=== PATIENT | female | born 1990 | race Hispanic/Latino ===

== ENCOUNTER 2016-06-21 11:39 | Inpatient (IN) | payer OTHER ==
[2016-06-21] VITALS (37 sets, daily range): BP systolic 111–180; BP diastolic 55–112
[~2016-06-21] VITALS: Ht 160 cm; Wt 99.0 kg
[~2016-06-21 11:39] MED LIST: B12; IBUPROFEN800 MG; NOHOMEMEDS; NUVARING VAGIN1 EACH PO; PAROXETINE HCL20 MG PO; PRENATAL TABLE1 EAC3 PO; PROCTOFOAM-HC10 GM; TOPIRAMATE50 MG PO; VITAMIN D-32000 UNI2 PO; ZOFRAN4 MG PO
[2016-06-21] MEDS ORDERED: AMBIEN5 MG PO (12:11)
[2016-06-21 13:47] LABS: EOSINOPHIL (%) 0.8 % (0-5); EOSINOPHIL COUNT 0.1 K/uL (0-0.3); IMMATURE GRANULOCYTE (%) 0.5 % (0.0-0.7); IMMATURE GRANULOCYTE COUNT 0.1 K/uL; LYMPHOCYTE COUNT 2.4 K/uL (1.0-2.8); MONOCYTE (%) 8.4 % (3-12); MONOCYTE COUNT 1.1 K/uL (0-0.8); NEUTROPHIL (%) 71.9 % (45-76); NEUTROPHIL COUNT 9.5 K/uL (1.8-6.4)
[2016-06-21 14:04] LABS: HEMATOCRIT 36.6 % (36.0-46.0); MCH 26.7 PG (29.0-34.0); MCHC 33.1 G/DL (30.0-36.0); MCV 80.6 FL (83-99); RBC DIS.WIDTH-SD 40.9 % (39-53); RED BLOOD COUNT 4.54 M/uL (3.80-5.20); WHITE BLOOD COUNT 13.2 K/uL (4.1-10.2)
[2016-06-21 14:59] LABS: PLAT.SUFFICIENCY DECREASED; USER ID SS
[2016-06-21 15:00] LABS: PLATELET COUNT 140 K/uL (156-360)
[2016-06-21] MEDS ORDERED: MOTRIN800 MG PO (22:20)
[2016-06-22 00:20] VITALS: BP 145/73
[2016-06-22 01:25] VITALS: BP 136/95
[2016-06-22 02:50] VITALS: BP 138/70
[2016-06-22 08:12] VITALS: BP 112/65
[2016-06-22 09:12] LABS: PLAT.SUFFICIENCY ADEQUATE; PLATELET COUNT UNABLE TO REPORT K/uL (156-360)
[2016-06-22 09:15] LABS: EOSINOPHIL (%) 0.3 % (0-5); EOSINOPHIL COUNT 0.1 K/uL (0-0.3); IMMATURE GRANULOCYTE (%) 0.3 % (0.0-0.7); IMMATURE GRANULOCYTE COUNT 0.1 K/uL; LYMPHOCYTE COUNT 2.1 K/uL (1.0-2.8); MONOCYTE (%) 8.3 % (3-12); MONOCYTE COUNT 1.6 K/uL (0-0.8); NEUTROPHIL (%) 79.7 % (45-76); NEUTROPHIL COUNT 15.1 K/uL (1.8-6.4)
[2016-06-22 09:21] LABS: HEMATOCRIT 32.4 % (36.0-46.0); MCH 25.7 PG (29.0-34.0); MCHC 32.1 G/DL (30.0-36.0); MCV 80.1 FL (83-99); RBC DIS.WIDTH-SD 39.8 % (39-53); RED BLOOD COUNT 4.05 M/uL (3.80-5.20)
[2016-06-22 15:41] VITALS: BP 131/71
[2016-06-22 23:27] VITALS: BP 134/74
[2016-06-23 07:39] VITALS: BP 133/66
[2016-06-23 15:20] VITALS: BP 131/58
== END 2016-06-23 16:25 | disposition home or self-care (01) | DRG 775 ==
LOC: LDRP-OP 11:39 → 2WEST 11:40 → LDRP-OP 06-22 10:37 → 2WEST 06-23 16:25 → LDRP-OP 07-23 12:08
PROVIDERS: Midwife; Obstetrics & Gynecology
DX: O99.344 Other mental disorders complicating childbirth (principal); E66.9 Obesity, unspecified; F41.9 Anxiety disorder, unspecified; O99.214 Obesity complicating childbirth; O70.0 First degree perineal laceration during delivery; O76 Abnormality in fetal heart rate and rhythm complicating labor and delivery; O77.0 Labor and delivery complicated by meconium in amniotic fluid; Z3A.39 39 weeks gestation of pregnancy; Z37.0 Single live birth
CPT/HCPCS: 85025; C1755; J0595; J1200; J2300; J3010; J7120

== ENCOUNTER 2016-12-31 20:26 | Emergency (ER) | payer OTHER ==
[~2016-12-31] VITALS: Ht 160 cm; Wt 92.7 kg
[~2016-12-31 20:26] MED LIST changes: +AMBIEN5 MG PO; +MOTRIN800 MG PO
[2016-12-31 21:13] LABS: ADD MIUA? YES; BILIRUBIN LARGE; BLOOD TRACE; COLOR ORANGE ((YELLOW)); GLUCOSE (STRIP) NEGATIVE; KETONES NEGATIVE; LEUKOCYTES SMALL; SPECIFIC GRAVITY 1.016 (1.000-1.030)
[2016-12-31 21:27] LABS: BACTERIA 1+ /HPF; EPITHELIAL CELLS 1+ /HPF; MUCUS RARE /LPF; RED BLOOD CELLS 0-5 /HPF (0-5); UCUL ADDED? YES
[2016-12-31 21:28] LABS: ICTOTEST POSITIVE
[2016-12-31 22:27] LABS: EOSINOPHIL (%) 0.6 % (0-5); EOSINOPHIL COUNT 0.1 K/uL (0-0.3); HEMATOCRIT 36.3 % (36.0-46.0); IMMATURE GRANULOCYTE (%) 0.3 % (0.0-0.7); INSTRUMENT ABS NEUTROPHIL CT 6.6 K/uL; LYMPHOCYTE COUNT 1.3 K/uL (1.0-2.8); MCHC 30.3 G/DL (30.0-36.0); MCV 75.9 FL (83-99); MEAN PLAT.VOLUME 11.9 uM^3 (9.5-12.4); MONOCYTE (%) 9.7 % (3-12); MONOCYTE COUNT 0.9 K/uL (0-0.8); NEUTROPHIL (%) 75.1 % (45-76); NEUTROPHIL COUNT 6.6 K/uL (1.8-6.4); PLATELET COUNT 195 K/uL (156-360); RBC DIS.WIDTH-CV 15.1 % (11.8-14.6); RBC DIS.WIDTH-SD 41.6 % (39-53); RED BLOOD COUNT 4.78 M/uL (3.80-5.20); WHITE BLOOD COUNT 8.8 K/uL (4.1-10.2)
[2016-12-31 22:43] LABS: CHLORIDE 106 mEq/L (99-109); POTASSIUM 3.8 mEq/L (3.7-5.4); SODIUM 137 mEq/L (136-147)
[2016-12-31 22:46] LABS: GLUCOSE 95 mg/dL (70-99)
[2016-12-31 22:47] LABS: ANION GAP 10 MEQ/L (2-14)
[2016-12-31 22:48] LABS: TOTAL BILIRUBIN 0.3 mg/dL (0.0-1.0)
[2016-12-31 22:49] LABS: ALKALINE PHOSPHATASE 83 IU/L (3-129); GFR ESTIMATE (CALCULATED) > 59 mL/min/
[2016-12-31 22:50] LABS: UREA NITROGEN (BUN) 10 mg/dL (9-23)
[2016-12-31 22:58] LABS: QUANTITATIVE HCG < 4.0 MIU/ML
[2016-12-31] MEDS ORDERED: KEFLEX500 MG PO (23:41)
[2016-12-31] MEDS ORDERED: NAPROSYN500 MG PO (23:42)
[2016-12-31] MEDS ORDERED: ZOFRAN ODT4 MG PO (23:42)
[2016-12-31 23:59] VITALS: BP 115/64
== END 2017-01-01 | disposition home or self-care (01) ==
LOC: EME 20:26
PROVIDERS: Emergency Medicine
DX: N12 Tubulo-interstitial nephritis, not specified as acute or chronic (principal); F17.200 Nicotine dependence, unspecified, uncomplicated; Z87.442 Personal history of urinary calculi
CPT/HCPCS: 74176; 80053; 81003; 83605; 84702; 85025; 87040; 87086; 99281; 99285; J0696; J1885; J2405; J7030; J7050

== ENCOUNTER 2017-01-03 22:15 | Emergency (ER) | payer OTHER ==
[~2017-01-03] VITALS: Ht 160 cm; Wt 94.5 kg
[~2017-01-03 22:15] MED LIST changes: +KEFLEX500 MG PO; +NAPROSYN500 MG PO; +ZOFRAN ODT4 MG PO
[2017-01-03 22:59] LABS: HEMATOCRIT 31.9 % (36.0-46.0); MCH 22.9 PG (29.0-34.0); MCHC 30.4 G/DL (30.0-36.0); MCV 75.2 FL (83-99); PLATELET COUNT 188 K/uL (156-360); RBC DIS.WIDTH-CV 15.1 % (11.8-14.6); RBC DIS.WIDTH-SD 41.6 % (39-53); RED BLOOD COUNT 4.24 M/uL (3.80-5.20); WHITE BLOOD COUNT 7.4 K/uL (4.1-10.2)
[2017-01-03 23:19] LABS: CHLORIDE 105 mEq/L (99-109); POTASSIUM 4.1 mEq/L (3.7-5.4); SODIUM 135 mEq/L (136-147)
[2017-01-03 23:21] LABS: GLUCOSE 99 mg/dL (70-99)
[2017-01-03 23:23] LABS: ANION GAP 8 MEQ/L (2-14)
[2017-01-03 23:25] LABS: ALKALINE PHOSPHATASE 77 IU/L (3-129); GFR ESTIMATE (CALCULATED) > 59 mL/min/
[2017-01-03 23:26] LABS: UREA NITROGEN (BUN) 7 mg/dL (9-23)
[2017-01-03 23:28] LABS: QUANTITATIVE HCG < 4.0 MIU/ML
[2017-01-03 23:36] LABS: TOTAL BILIRUBIN 0.2 mg/dL (0.0-1.0)
[2017-01-04 00:35] LABS: ADD MIUA? YES; COLOR ORANGE ((YELLOW)); SPECIFIC GRAVITY 1.021 (1.000-1.030)
[2017-01-04 01:04] LABS: BACTERIA NONE SEEN /HPF; CASTS NONE SEEN /LPF; CRYSTALS NONE SEEN; EPITHELIAL CELLS RARE /HPF; MUCUS NONE SEEN /LPF; RED BLOOD CELLS 0-5 /HPF (0-5); UCUL ADDED? YES
[2017-01-04] MEDS ORDERED: NORCO 5/3251 TABLET PO (01:20)
[2017-01-04] MEDS ORDERED: CIPRO500 MG PO (01:20)
[2017-01-04 01:47] LABS: INFLUENZA A VIRAL ANTIGEN NEGATIVE; INFLUENZA B VIRAL ANTIGEN NEGATIVE
[2017-01-04] MEDS ORDERED: ZOFRAN4 MG PO (02:33)
[2017-01-04 03:02] VITALS: BP 129/74
== END 2017-01-04 03:03 | disposition home or self-care (01) ==
LOC: EME 22:15
PROVIDERS: Emergency Medicine
DX: N30.90 Cystitis, unspecified without hematuria (principal); M79.1 Myalgia; D64.9 Anemia, unspecified; F17.200 Nicotine dependence, unspecified, uncomplicated
CPT/HCPCS: 76770; 80053; 81003; 84702; 85027; 87086; 87502; 99281; 99285; J0744; J1885; J2270; J2405; J7030

== ENCOUNTER 2017-11-12 18:53 | Emergency (ER) | payer OTHER ==
[~2017-11-12] VITALS: Ht 160 cm; Wt 85.0 kg
[~2017-11-12 18:53] MED LIST changes: +CIPRO500 MG PO; +NORCO 5/3251 TABLET PO
[2017-11-12 21:03] VITALS: BP 143/84
== END 2017-11-12 21:05 | disposition home or self-care (01) ==
LOC: EME 18:53
DX: F41.9 Anxiety disorder, unspecified (principal); Z87.891 Personal history of nicotine dependence
CPT/HCPCS: 99281; 99283